=== PATIENT | female | born 1945 | race Caucasian/White ===

== ENCOUNTER 2019-11-17 14:55 | Emergency (ER) | payer OTHER ==
[~2019-11-17] VITALS: Ht 160 cm; Wt 52.6 kg
[2019-11-17] MEDS ORDERED: LOPRESSOR HCT1 EACH (15:40)
[2019-11-17] MEDS ORDERED: ZANAX (15:41)
[2019-11-17] MEDS ORDERED: LIALDA1.2 GM (15:41)
== END 2019-11-17 18:33 | disposition home or self-care (01) ==
LOC: ER 14:55
DX: B34.9 Viral infection, unspecified (principal)

== ENCOUNTER 2025-07-15 21:52 | Emergency (ER) | payer OTHER ==
[~2025-07-15] VITALS: Ht 160 cm; Wt 48.5 kg
[~2025-07-15 21:52] MED LIST: LIALDA1.2 GM; LOPRESSOR HCT1 EACH; ZANAX
[2025-07-15 22:14] VITALS: O2SAT 98
[2025-07-15] MEDS ORDERED: ZESTRIL2.5 MG (22:14)
[2025-07-16] MEDS ORDERED: ACETAMINOPHEN 500 MG GEL..CAP PO ONE ×2 (00:45→01:34)
[2025-07-16] MEDS ORDERED: DIPHTH,PERTUSS(ACELL),TET VAC 0.5 ML SYRINGE IM ONE ×2 (00:45→01:35)
[2025-07-16] MEDS ORDERED: KETOROLAC TROMETHAMINE 60 MG VIAL IM ONE ×2 (00:45→01:34)
[2025-07-16] MEDS ORDERED: 8HR ARTHRITIS650 M1 PO (01:23)
[2025-07-16 01:54] VITALS: BP 140/80
== END 2025-07-16 01:56 | disposition home or self-care (01) ==
LOC: ER → EDBD 21:53 → ER 21:53
DX: S81.821A Laceration with foreign body, right lower leg, initial encounter (principal); I10 Essential (primary) hypertension; W25.XXXA Contact with sharp glass, initial encounter; Y93.89 Activity, other specified; Y92.018 Other place in single-family (private) house as the place of occurrence of the external cause
CPT/HCPCS: 12001; 73590; 90471; 90714; 96372; 99283; J1670; J1885

== ENCOUNTER → 2025-07-23 | Emergency (ER) | payer OTHER ==
[~2025-07-23] VITALS: Ht 160 cm; Wt 48.5 kg
[~2025-07-23] MED LIST changes: +8HR ARTHRITIS650 M1 PO; +CARVEDILOL ER40 MG PO; +CEFTRIAXONE SODIUM 1,000 MG VIAL IM ONE; +CEFTRIAXONE SODIUM 1,000 MG VIAL ONE; +CEPHALEXIN500 M1 PO; +CIPRO500 MG PO; +INTESTINEX680 M1 PO; +LEVSIN/SL0.125 MG SL; +LIDOCAINE HCL/MPF 1% 5ML VIAL IJ ONE; +ONDANSETRON ODT4 MG PO; +PEPCID AC20 MG PO; +ZESTRIL2.5 MG
[2025-07-23 16:40] VITALS: BP 120/72; O2SAT 97
== END | disposition home or self-care (01) ==
LOC: ER 16:33
DX: T81.41XA Infection following a procedure, superficial incisional surgical site, initial encounter (principal); Y92.89 Other specified places as the place of occurrence of the external cause

== ENCOUNTER 2025-07-26 21:25 | Emergency (ER) | payer OTHER ==
[~2025-07-26] VITALS: Ht 160 cm; Wt 48.5 kg
[~2025-07-26 21:25] MED LIST changes: -CARVEDILOL ER40 MG PO; -CEFTRIAXONE SODIUM 1,000 MG VIAL IM ONE; -CEFTRIAXONE SODIUM 1,000 MG VIAL ONE; -CIPRO500 MG PO; -INTESTINEX680 M1 PO; -LEVSIN/SL0.125 MG SL; -LIDOCAINE HCL/MPF 1% 5ML VIAL IJ ONE; -ONDANSETRON ODT4 MG PO
[2025-07-26] MEDS ORDERED: CARVEDILOL ER40 MG PO (21:35)
[2025-07-26] MEDS ORDERED: LACTOBACILLUS ACIDOPHILUS 1 CAP CAP PO ONE ×2 (21:51→22:00)
[2025-07-26] MEDS ORDERED: ONDANSETRON HCL 2 MG/ML VIAL ONE (21:51)
[2025-07-26] MEDS ORDERED: FAMOTIDINE/PF 20 MG/2 ML VIAL ONE (21:52)
[2025-07-26] MEDS ORDERED: 0.9 % SODIUM CHLORIDE 1,000 ML IV ONE (22:00)
[2025-07-26] MEDS ORDERED: HYOSCYAMINE SULFATE 0.125 MG TAB.SUBL SL ONE (22:00)
[2025-07-26] MEDS ORDERED: FAMOtidine 10 MG/ML (4ML VIAL) IV ONE (22:00)
[2025-07-26] MEDS ORDERED: ONDANSETRON HCL 2 MG/ML VIAL IV ONE (22:00)
[2025-07-26 22:23] LABS: BASO % 0.3 % (0.1-1.2); EOS # 0.00 (0.04-0.54); EOS % 0.0 % (0.7-7.0); LYMPH # 0.62 (1.18-3.74); LYMPH % 4.7 % (19.3-53.1); MEAN PLATELET VOLUME 9.70 fl (9.4-12.4); MONO # 0.44 (0.24-0.82); MONO % 3.3 % (4.7-12.5); NEUT # 12.04 (1.56-6.13); NEUT % 91.3 % (34.0-71.1); RED CELL DISTRIBUTION WIDTH 13.7 % (11.6-14.4)
[2025-07-26 22:42] LABS: INR 1.02
[2025-07-26 22:46] LABS: ALT/SGPT 167.0 U/L (12-78); AST/SGOT 315.0 U/L (15-37); BILIRUBIN TOTAL 1.14 mg/dL (0.3-1.2); BUN CREA RATIO 26.0 (7.0-25.0); CREATININE SERUM 0.65 mg/dL (0.55-1.02); GFR 87.26; GLOBULINA 3.4 G/DL (2.4-3.5); GLUCOSE FASTING 173.0 mg/dL (65-100); OSMOLALITY SERUM 283.0 MOSM/KG (275-295)
[2025-07-26 23:14] LABS: URINE APPEARANCE Clear; URINE BILIRRUBIN Negative (NEGATIVE); URINE BLOOD NHT; URINE COLOR Yellow; URINE KETONE 15 (NEGATIVE); URINE LEUKOCYTE Negative; URINE NITRATE Negative; URINE PROTEIN Negative (NEGATIVE); URINE UROBILINOGEN 0.2 E.U./dl
[2025-07-26 23:17] LABS: URINE RBC 18.9 uL (0.0-20.8)
[2025-07-26 23:40] LABS: URINE BACTERIA 3.5 uL (0.0-1933); URINE CAST 0.14 uL (0.0-1.40); URINE EPITHELIAL CELLS 1.2 uL (0.0-38.8); URINE GLUCOSE 100 MG/DL (NEGATIVE); URINE WBC 0.4 uL (0.0-23.2)
[2025-07-27] MEDS ORDERED: CIPROFLOXACIN IN 5 % DEXTROSE 400 MG/200 ML PIGGYBAG IV ONE ×2 (01:15→01:42)
[2025-07-27] MEDS ORDERED: CHOLESTYRAMINE/ASPARTAME LIGHT 4 G/PKT PACKET PO ONE (01:15)
[2025-07-27] MEDS ORDERED: CIPRO500 MG PO (01:58)
[2025-07-27] MEDS ORDERED: INTESTINEX680 M1 PO (01:58)
[2025-07-27] MEDS ORDERED: PEPCID AC20 MG PO (01:58)
[2025-07-27] MEDS ORDERED: ONDANSETRON ODT4 MG PO (01:58)
[2025-07-27] MEDS ORDERED: LEVSIN/SL0.125 MG SL (01:58)
== END 2025-07-27 08:09 | disposition home or self-care (01) ==
LOC: ER 21:25
PROVIDERS: General Practice
DX: R10.13 Epigastric pain (principal); I10 Essential (primary) hypertension; I70.8 Atherosclerosis of other arteries
CPT/HCPCS: 36415; 74176; 96365; 96366; 99283; J0744; J2405; J3490; J7030

== ENCOUNTER 2025-08-16 23:07 | Emergency (ER) | payer OTHER ==
[~2025-08-16] VITALS: Ht 152.4 cm; Wt 59.0 kg
[~2025-08-16 23:07] MED LIST changes: +CARVEDILOL ER40 MG PO; +CIPRO500 MG PO; +INTESTINEX680 M1 PO; +LEVSIN/SL0.125 MG SL; +ONDANSETRON ODT4 MG PO
[2025-08-16] MEDS ORDERED: XANAX1 MG PO (23:23)
[2025-08-16] MEDS ORDERED: ONDANSETRON HCL 2 MG/ML VIAL IV ONE (23:45)
[2025-08-16] MEDS ORDERED: FAMOTIDINE/PF 20 MG/2 ML VIAL IV PUSH STA (23:54)
[2025-08-16] MEDS ORDERED: SODIUM CHLORIDE 0.45 % 1,000 ML IV STA (23:55)
[2025-08-17] MEDS ORDERED: ONDANSETRON HCL 2 MG/ML VIAL ONE ×2 (00:03→01:10)
[2025-08-17] MEDS ORDERED: FAMOTIDINE/PF 20 MG/2 ML VIAL ONE ×2 (00:03→01:10)
[2025-08-17 01:36] LABS: BASO % 0.1 % (0.1-1.2); EOS # 0.00 (0.04-0.54); EOS % 0.0 % (0.7-7.0); LYMPH # 0.82 (1.18-3.74); LYMPH % 9.3 % (19.3-53.1); MEAN PLATELET VOLUME 9.80 fl (9.4-12.4); MONO # 0.46 (0.24-0.82); MONO % 5.2 % (4.7-12.5); NEUT # 7.51 (1.56-6.13); NEUT % 85.2 % (34.0-71.1); RED CELL DISTRIBUTION WIDTH 13.3 % (11.6-14.4)
[2025-08-17 01:51] LABS: ALT/SGPT 93.0 U/L (12-78); AST/SGOT 102.0 U/L (15-37); BILIRUBIN TOTAL 0.52 mg/dL (0.3-1.2); BUN CREA RATIO 36.0 (7.0-25.0); CREATININE SERUM 0.61 mg/dL (0.55-1.02); GFR 93.67; GLOBULINA 3.6 G/DL (2.4-3.5); GLUCOSE FASTING 172.0 mg/dL (65-100); OSMOLALITY SERUM 292.0 MOSM/KG (275-295)
[2025-08-17] MEDS ORDERED: POTASSIUM CHLORIDE 10 MEQ CAPSULE PO STA (03:50)
== END 2025-08-17 09:16 | disposition home or self-care (01) ==
LOC: ER 23:07
PROVIDERS: General Practice
DX: R11.10 Vomiting, unspecified (principal)
CPT/HCPCS: 36415; 74177; 99284; J2405; J3490; Q9965